=== PATIENT | female | born 1955 | race Caucasian/White ===

== ENCOUNTER → 2018-12-22 | Outpatient (CLI) | payer OTHER ==
[2018-12-22 12:02] LABS: AADO2 Arterial 39.4 mmHg (7.0-24.0); Arterial Base Excess -0.4 mmol/L (-3.0-3); Arterial Blood Gas Oxygen Sat 93.8 mmHG (95.0-98.0); Arterial COHb 4.4 % (0.0-3.0); Arterial Fraction of Oxyhgb 89.6 % (93.0-99.0); Arterial HCO3 23.3 mmol/L (22.0-26.0); Arterial MetHb 0.1 % (0.0-1.5); Arterial pCO2 35.9 mmhg (35-45); MODE ROOM AIR; Site Right Brachial
== END | disposition home or self-care (01) ==
LOC: PUL 11:35
DX: J45.909 Unspecified asthma, uncomplicated (principal)
CPT/HCPCS: 36600; 82803